=== PATIENT | male | born 1950 | race Caucasian/White ===

== ENCOUNTER → 2020-07-01 | Emergency (ER) | payer MEDICAID, MEDICARE | END | disposition home or self-care (01) | LOC: ER 02:28 | DX: T83.098A Other mechanical complication of other urinary catheter, initial encounter (principal); C61 Malignant neoplasm of prostate; R33.8 Other retention of urine; Y84.6 Urinary catheterization as the cause of abnormal reaction of the patient, or of later complication, without mention of misadventure at the time of the procedure; Y92.018 Other place in single-family (private) house as the place of occurrence of the external cause | CPT/HCPCS: 99284 ==